=== PATIENT | male | born 1995 | race Two or more races ===

== ENCOUNTER 2023-09-05 15:19 | Emergency (ER) | payer OTHER ==
[~2023-09-05] VITALS: Ht 170.2 cm; Wt 67.3 kg
[~2023-09-05 15:19] MED LIST: ACET-2247 PO; BUPR1FIL3 SL; DOCU-385 PO; HYDR50CA7 PO; IBUP-1492 PO; LACT10SO10 PO; MIRT-149 PO; PRAZ2 PO
[2023-09-05 16:10] VITALS: BP 127/83; PULSE 66; RESP 18; TEMP 98.5
[2023-09-05] MEDS: KETOROLAC TROMETHAMINE 30 MG/ML VIAL IM ONE (17:56)
== END 2023-09-05 21:36 | disposition home or self-care (01) ==
LOC: EMS 15:19
DX: I88.9 Nonspecific lymphadenitis, unspecified (principal); M43.6 Torticollis; F41.9 Anxiety disorder, unspecified
CPT/HCPCS: 99285; 70490; 96372; J1885; 99284